=== PATIENT | male | born 1945 | race Caucasian/White ===

== ENCOUNTER 2018-01-17 09:28 | Emergency (ER) | payer MEDICARE, OTHER ==
[2018-01-17 09:34] VITALS: BP 142/82
--- NOTE | 2018-01-17 09:59 | ER Document Report ---
HPI - HPI Pain Level: 0 Notes: Patient is a 72-year-old male no significant past medical history who presents to the ED complaining of possible bursitis to his left elbow. Patient states that he was in a prolonged sitting position for 4 hours with his arms rested on the armrest. Patient states that he woke up the next morning with a bursitis. Patient states that there is no redness and there is no pain associated. The swelling is only to the elbow itself and not to the arm or forearm. He denies any drug allergies or history of blood clots. He is not on any blood thinners. Denies any headache, fever, URI, sore throat, chest pain, palpitations, syncope, cough, shortness of breath, wheeze, dyspnea, abdominal pain, nausea/ vomiting/diarrhea, urinary retention, dysuria, hematuria, loss of control of bowel or bladder, numbness/tingling, muscle paralysis/weakness, or rash. - ROS Systems Reviewed and Negative: Yes All other systems reviewed and negative Past Medical History - Social History Smoking Status: Never Smoker Family History: Reviewed & Not Pertinent Vertical Provider Document - CONSTITUTIONAL Agree With Documented VS: Yes Notes: PHYSICAL EXAMINATION: GENERAL: Well-appearing, well-nourished and in no acute distress. LUNGS: Breath sounds clear to auscultation bilaterally and equal. No wheezes rales or rhonchi. HEART: Regular rate and rhythm without murmurs, rubs, gallops. Musculoskeletal: LUE: FROM to passive/active. Strength 5+/5. N/V intact distal. There is an obvious small to moderate noted bursitis to the olecranon on the left side that has fluid, but is w/o any distal edema, erythema, warmth, or tenderness. The fluid pocket is moveable. No induration. Extremities: No cyanosis, clubbing, or edema b/l. Peripheral pulses 2+. Capillary refill less than 3 seconds. NEUROLOGICAL: Normal speech, normal gait. Normal sensory, motor exams PSYCH: Normal mood, normal affect. SKIN: Warm, Dry, normal turgor, no rashes or lesions noted. - INFECTION CONTROL TRAVEL OUTSIDE OF THE [place] IN LAST 30 DAYS: No Course - Re-evaluation Re-evalutation: 01/17/18 09:56 Patient is an afebrile, well-hydrated, 72-year-old male who presents to the ED with an olecranon bursitis to the left elbow. Vitals are acceptable without any significant tachycardia, tachypnea, or hypoxia. PE is otherwise unremarkable for any neurovascular compromise, obvious tendon/ligament rupture, obvious fracture/dislocation, septic joint, DVT, SVT, cellulitis. There is no evidence of infection as there is no erythema, warmth, induration, edematous tissue, or tenderness associated. Patient is nontoxic-appearing. No other labs or imaging warranted at this time based on H&P. I will send him home with a prescription for naproxen. Joint protection reviewed as well as warning signs for infection. Conservative measures otherwise for symptoms. Recheck with your PCM in 3-5 days. Consider consult orthopedics. Return to the ED with any worsening/concerning symptoms otherwise as reviewed in discharge. Patient is in agreement. - Vital Signs Vital signs: Temp Pulse Resp BP Pulse Ox 97.4 F 66 16 142/82 H 98 01/17/18 09:32 01/17/18 09:32 01/17/18 09:32 01/17/18 09:32 01/17/18 09:32 Discharge - Discharge Clinical Impression: Olecranon bursitis, left elbow Condition: Stable Disposition: HOME, SELF-CARE Instructions: Olecranon Bursitis ([facility]) Additional Instructions: Avoid any new injury or prolonged pressure to the elbow Keep the skin clean Wash with soap and water Take medication as directed Monitor for any worsening symptoms Recheck with your PCM in 3-5 days Consider consult with orthopedics for ongoing/worsening symptoms Return to the ED with any worsening symptoms and/or development of fever, headache, chest pain, palpitations, syncope, shortness of breath, trouble breathing, abdominal pain, n/v/d, abscess, purulent discharge, red streaks, worsening swelling, or other worsening symptoms that are concerning to you. Prescriptions: Naproxen 500 mg PO BID PRN #20 tablet PRN Reason: Forms: Elevated Blood Pressure Referrals: [facility] ([place] [Provider Group] - Follow up as needed
== END 2018-01-17 10:15 | disposition home or self-care (01) ==
LOC: ER 09:28
DX: M70.22 Olecranon bursitis, left elbow (principal)
CPT/HCPCS: 99283